=== PATIENT | female | born 1985 | race Caucasian/White ===

== ENCOUNTER 2018-10-18 20:42 | Emergency (ER) | payer SELFPAY ==
[~2018-10-18] VITALS: Ht 170.2 cm; Wt 65.8 kg
[2018-10-18] MEDS ORDERED: MORPHINE SULFATE INJ 10 MG/ML DISP.SYRIN IM ONE (21:30)
[2018-10-18] MEDS ORDERED: ONDANSETRON 4 MG TAB.RAPDIS SL ONE ×2 (21:30→23:30)
[2018-10-18] MEDS ORDERED: MORPHINE SULFATE INJ 4 MG/ML DISP.SYRIN ONE (21:44)
[2018-10-18] MEDS ORDERED: ONDANSETRON 4 MG TAB.RAPDIS ONE (21:44)
--- NOTE | 2018-10-18 21:56 | NUR ---
BIBSELF C/O HEAD/NECK/BACK PAIN WITH N/V X 4 HOURS S/P SLIPPING ON AN OBJECT ON THE FLOOR. PATIENT STATES HIT THE BACK OF HER HEAD, DENIES LOC. PT AAOX4, VSS. RR EVEN & UNLABORED. DENIES CP, SOB, DIZZINESS AT THIS TIME. PT SEEN & EVAL'D BY DR. AUSTIN, MEDICATED ORDERED & WILL CONT TO MONITOR.
[2018-10-18] MEDS ORDERED: IBUPROFEN 600 MG TABLET PO ONE (23:30)
[2018-10-18 23:32] VITALS: BP 123/87
--- NOTE | 2018-10-18 23:33 | NUR ---
Patient discharged to home in stable condition. Written and verbal after care instructions given. Patient verbalizes understanding of instruction.
== END 2018-10-18 23:34 | disposition home or self-care (01) ==
LOC: ER 20:54
DX: S06.0X0A Concussion without loss of consciousness, initial encounter (principal); S40.011A Contusion of right shoulder, initial encounter; M54.2 Cervicalgia; Z60.2 Problems related to living alone; W01.0XXA Fall on same level from slipping, tripping and stumbling without subsequent striking against object, initial encounter; Y93.89 Activity, other specified; Y92.89 Other specified places as the place of occurrence of the external cause; Y99.8 Other external cause status
CPT/HCPCS: 70450; 72125; 73030; 84703; 96372; 99284; J2270; L0172; Q0162